=== PATIENT | male | born 1940 | race African-American/Black ===

== ENCOUNTER 2019-10-26 16:14 | Inpatient (IN) | payer MEDICARE ==
[~2019-10-26] VITALS: Ht 175.3 cm; Wt 70.8 kg
[2019-10-26 17:16] LABS: BARBITURATES NEG (NEG); BENZODIAZEPINES NEG (NEG); CANNABINOIDS NEG (NEG); COCAINE NEG (NEG); METHADONE NEG (NEG); OPIATES NEG (NEG); PHENCYCLIDINE NEG (NEG)
[2019-10-26 17:18] LABS: BACTERIA,URINE 0 /HPF (0-FEW); BILIRUBIN,URINE NEG (NEG); CLARITY,URINE CLEAR; COLOR,URINE COLORLESS; GLUCOSE,URINE NEG (NEG); NITRITE,URINE NEG (NEG); RBC,URINE 0 /HPF (0-2); SQUAMOUS EPITHELIAL CELL,UR OCC /LPF; UROBILINOGEN,URINE 0.2 mg/dL (0.2 mg/dL); WBC,URINE 0 /HPF (0-4)
[2019-10-26 17:20] LABS: AMPHETAMINE/METHAMPHETAMINE NEG (NEG)
[2019-10-26 17:24] LABS: BASO # 0.1 x10^3/uL (0.0-0.2); BASO % 1 % (0-3); EOS # 0.3 x10^3/uL (0.0-0.7); EOS % 5 % (0-3); HEMATOCRIT 40.9 % (39.0-53.0); HEMOGLOBIN 13.6 g/dL (13.0-17.5); LYMPH # 3.1 x10^3/uL (1.0-4.8); LYMPH % 48 % (24-48); MEAN CORPUSCULAR HEMOGLOBIN 28 pg (25-35); MEAN CORPUSCULAR HGB CONC 33 g/dL (31-37); MEAN CORPUSCULAR VOLUME 85 fL (79-100); MONO # 0.5 x10^3/uL (0.0-1.1); MONO % 8 % (0-9); NEUT # 2.5 x10^3uL (1.8-7.7); NEUT % 39 % (31-73); PLATELET COUNT 302 x10^3/uL (140-400); RED BLOOD COUNT 4.83 x10^6/uL (4.30-5.70); RED CELL DISTRIBUTION WIDTH 14.3 % (11.5-14.5); WHITE BLOOD COUNT 6.5 x10^3/uL (4.0-11.0)
[2019-10-26 17:31] LABS: CALCIUM 9.6 mg/dL (8.5-10.1); CREATININE 1.6 mg/dL (0.7-1.3); GFR 41.8; POTASSIUM 3.7 mmol/L (3.5-5.1)
[2019-10-26 17:37] LABS: ALBUMIN/GLOBULIN RATIO 0.9 (1.0-1.7); MAGNESIUM 2.1 mg/dL (1.8-2.4); TOTAL BILIRUBIN 0.4 mg/dL (0.2-1.0); TOTAL PROTEIN 8.5 g/dL (6.4-8.2)
[2019-10-26 17:39] LABS: ACETAMIN < 2.0 mcg/mL (10-30); ETHANOL < 10 mg/dL (0-10); SALIC 0.8 mg/dL (2.8-20.0)
--- NOTE | 2019-10-26 17:43 | PHYS DOC ---
Past History Past Medical History: Dementia, Diabetes, Hypertension, Other Additional Past Medical Histor: lung cancer with mets Past Surgical History: No Surgical History Alcohol Use: None Drug Use: None Adult General Chief Complaint Chief Complaint: MEDICAL CLEARANCE [facility] HPI Patient is a 79-year-old male who was sent here for medical clearance prior to being admitted to GERIPSYCH units at this hospital. Patient has history of dementia, diabetic, hypertension. He had been more combative agitated, Resists care, REFUSED TAKING A BATH, verbally aggressive towards detention staff. he denies suicidal ideation and homicidal ideation. he denies any chest pain, no abdominal pain, no nausea vomiting. All other ROS is negative unless otherwise noted in HPI Review of Systems Review of Systems See above Allergies Allergies Allergies Coded Allergies Type Severity Reaction Last Updated Verified No Known Drug Allergies 10/26/19 No Physical Exam Physical Exam See above Constitutional: Well developed, well nourished, no acute distress, non-toxic appearance. [] HENT: Normocephalic, atraumatic, bilateral external ears normal, oropharynx moist, no oral exudates, nose normal. [] Eyes: PERRLA, EOMI, conjunctiva normal, no discharge. [] Neck: Normal range of motion, no tenderness, supple, no stridor. [] Cardiovascular:Heart rate regular rhythm, no murmur [] Lungs & Thorax: Bilateral breath sounds clear to auscultation [] Abdomen: Bowel sounds normal, soft, no tenderness, no masses, no pulsatile masses. [] Skin: Warm, dry, no erythema, no rash. [] Back: No tenderness, no CVA tenderness. [] Extremities: No tenderness, no cyanosis, no clubbing, ROM intact, no edema. [] Neurologic: Alert and oriented X 3, normal motor function, normal sensory function, no focal deficits noted. [] Psychologic: Patient appeared irritated but follow command. Current Patient Data Vital Signs Vital Signs Date Time Temp Pulse Resp B/P (MAP) Pulse Ox O2 Delivery O2 Flow Rate FiO2 10/26/19 16:14 98.1 109 18 100 Room Air Lab Results Laboratory Tests Test 10/26/19 16:15 10/26/19 17:05 Urine Collection Type Void Urine Color Colorless Urine Clarity Clear Urine pH 7.0 Urine Specific [place] 1.010 Urine Protein Neg (NEG-TRACE) Urine Glucose (UA) Neg mg/dL (NEG) Urine Ketones (Stick) Neg mg/dL (NEG) Urine Blood Neg (NEG) Urine Nitrite Neg (NEG) Urine Bilirubin Neg (NEG) Urine Urobilinogen Dipstick 0.2 mg/dL (0.2 mg/dL) Urine Leukocyte Esterase Neg (NEG) Urine RBC 0 /HPF (0-2) Urine WBC 0 /HPF (0-4) Urine Squamous Epithelial Cells Occ /LPF Urine Bacteria 0 /HPF (0-FEW) Urine Opiates Screen Neg (NEG) Urine Methadone Screen Neg (NEG) Urine Barbiturates Neg (NEG) Urine Phencyclidine Screen Neg (NEG) Urine Amphetamine/Methamphetamine Neg (NEG) Urine Benzodiazepines Screen Neg (NEG) Urine Cocaine Screen Neg (NEG) Urine Cannabinoids Screen Neg (NEG) Urine Ethyl Alcohol Neg (NEG) White Blood Count 6.5 x10^3/uL (4.0-11.0) Red Blood Count 4.83 x10^6/uL (4.30-5.70) Hemoglobin 13.6 g/dL (13.0-17.5) Hematocrit 40.9 % (39.0-53.0) Mean Corpuscular Volume 85 fL (79-100) Mean Corpuscular Hemoglobin 28 pg (25-35) Mean Corpuscular Hemoglobin Concent 33 g/dL (31-37) Red Cell Distribution Width 14.3 % (11.5-14.5) Platelet Count 302 x10^3/uL (140-400) Neutrophils (%) (Auto) 39 % (31-73) Lymphocytes (%) (Auto) 48 % (24-48) Monocytes (%) (Auto) 8 % (0-9) Eosinophils (%) (Auto) 5 % (0-3) H Basophils (%) (Auto) 1 % (0-3) Neutrophils # (Auto) 2.5 x10^3uL (1.8-7.7) Lymphocytes # (Auto) 3.1 x10^3/uL (1.0-4.8) Monocytes # (Auto) 0.5 x10^3/uL (0.0-1.1) Eosinophils # (Auto) 0.3 x10^3/uL (0.0-0.7) Basophils # (Auto) 0.1 x10^3/uL (0.0-0.2) Sodium Level 144 mmol/L (136-145) Potassium Level 3.7 mmol/L (3.5-5.1) Chloride Level 106 mmol/L (98-107) Carbon Dioxide Level 28 mmol/L (21-32) Anion Gap 10 (6-14) Blood Urea Nitrogen 17 mg/dL (8-26) Creatinine 1.6 mg/dL (0.7-1.3) H Estimated GFR (Cockcroft-Gault) 41.8 BUN/Creatinine Ratio 11 (6-20) Glucose Level 150 mg/dL (70-99) H Calcium Level 9.6 mg/dL (8.5-10.1) Magnesium Level 2.1 mg/dL (1.8-2.4) Total Bilirubin 0.4 mg/dL (0.2-1.0) Aspartate Amino Transferase (AST) 12 U/L (15-37) L Alanine Aminotransferase (ALT) 22 U/L (16-63) Alkaline Phosphatase 97 U/L (46-116) Total Protein 8.5 g/dL (6.4-8.2) H Albumin 4.0 g/dL (3.4-5.0) Albumin/Globulin Ratio 0.9 (1.0-1.7) L Salicylates Level 0.8 mg/dL (2.8-20.0) L Salicylate Last Dose Date Unk Salicylate Last Dose Time Unk Acetaminophen Level < 2.0 mcg/mL (10-30) L Acetaminophen Last Dose Date Unk Acetaminophen Last Dose Time Unk Ethyl Alcohol Level < 10 mg/dL (0-10) EKG EKG [] Radiology/Procedures Radiology/Procedures [] Course & Med Decision Making Course & Med Decision Making Pertinent Labs and Imaging studies reviewed. (See chart for details) [] Dragon Disclaimer Dragon Disclaimer This electronic medical record was generated, in whole or in part, using a voice recognition dictation system. Departure Departure: Impression: Primary Impression: Dementia Additional Impression: Agitation Disposition: ADMITTED INPATIENT Admitting Physician: Other (DR. POWELL) Condition: STABLE Referrals: ASHER CHAPMAN (PCP) Problem Qualifiers REJI LOZADA DO Oct 26, 2019 17:43
--- NOTE | 2019-10-26 18:00 | EKG ---
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
[2019-10-26 19:45] VITALS: BP 125/71
--- NOTE | 2019-10-26 21:03 | PDOC ---
Exam Note: Rafa Note: Please also refer to the separate dictated note~for this date of service dictated separately. Discussed the patient with Nursing staff reviewed the chart.~Reviewed interim history and current functioning. Reviewed vital signs,~Labs/ Radiology~and current medications noted below. Continue current treatment with the changes noted in the dictated addendum note Assessment: Vital Signs/I&O: Vital Signs Date Time Temp Pulse Resp B/P (MAP) Pulse Ox O2 Delivery O2 Flow Rate FiO2 10/26/19 18:36 108 20 146/60 (88) 99 Room Air 10/26/19 16:14 98.1 Labs: Laboratory Tests Test 10/26/19 16:15 10/26/19 17:05 Urine Collection Type Void Urine Color Colorless Urine Clarity Clear Urine pH 7.0 Urine Specific [place] 1.010 Urine Protein Neg (NEG-TRACE) Urine Glucose (UA) Neg mg/dL (NEG) Urine Ketones (Stick) Neg mg/dL (NEG) Urine Blood Neg (NEG) Urine Nitrite Neg (NEG) Urine Bilirubin Neg (NEG) Urine Urobilinogen Dipstick 0.2 mg/dL (0.2 mg/dL) Urine Leukocyte Esterase Neg (NEG) Urine RBC 0 /HPF (0-2) Urine WBC 0 /HPF (0-4) Urine Squamous Epithelial Cells Occ /LPF Urine Bacteria 0 /HPF (0-FEW) Urine Opiates Screen Neg (NEG) Urine Methadone Screen Neg (NEG) Urine Barbiturates Neg (NEG) Urine Phencyclidine Screen Neg (NEG) Urine Amphetamine/Methamphetamine Neg (NEG) Urine Benzodiazepines Screen Neg (NEG) Urine Cocaine Screen Neg (NEG) Urine Cannabinoids Screen Neg (NEG) Urine Ethyl Alcohol Neg (NEG) White Blood Count 6.5 x10^3/uL (4.0-11.0) Red Blood Count 4.83 x10^6/uL (4.30-5.70) Hemoglobin 13.6 g/dL (13.0-17.5) Hematocrit 40.9 % (39.0-53.0) Mean Corpuscular Volume 85 fL (79-100) Mean Corpuscular Hemoglobin 28 pg (25-35) Mean Corpuscular Hemoglobin Concent 33 g/dL (31-37) Red Cell Distribution Width 14.3 % (11.5-14.5) Platelet Count 302 x10^3/uL (140-400) Neutrophils (%) (Auto) 39 % (31-73) Lymphocytes (%) (Auto) 48 % (24-48) Monocytes (%) (Auto) 8 % (0-9) Eosinophils (%) (Auto) 5 % (0-3) H Basophils (%) (Auto) 1 % (0-3) Neutrophils # (Auto) 2.5 x10^3uL (1.8-7.7) Lymphocytes # (Auto) 3.1 x10^3/uL (1.0-4.8) Monocytes # (Auto) 0.5 x10^3/uL (0.0-1.1) Eosinophils # (Auto) 0.3 x10^3/uL (0.0-0.7) Basophils # (Auto) 0.1 x10^3/uL (0.0-0.2) Sodium Level 144 mmol/L (136-145) Potassium Level 3.7 mmol/L (3.5-5.1) Chloride Level 106 mmol/L (98-107) Carbon Dioxide Level 28 mmol/L (21-32) Anion Gap 10 (6-14) Blood Urea Nitrogen 17 mg/dL (8-26) Creatinine 1.6 mg/dL (0.7-1.3) H Estimated GFR (Cockcroft-Gault) 41.8 BUN/Creatinine Ratio 11 (6-20) Glucose Level 150 mg/dL (70-99) H Calcium Level 9.6 mg/dL (8.5-10.1) Magnesium Level 2.1 mg/dL (1.8-2.4) Total Bilirubin 0.4 mg/dL (0.2-1.0) Aspartate Amino Transferase (AST) 12 U/L (15-37) L Alanine Aminotransferase (ALT) 22 U/L (16-63) Alkaline Phosphatase 97 U/L (46-116) Total Protein 8.5 g/dL (6.4-8.2) H Albumin 4.0 g/dL (3.4-5.0) Albumin/Globulin Ratio 0.9 (1.0-1.7) L Salicylates Level 0.8 mg/dL (2.8-20.0) L Salicylate Last Dose Date Unk Salicylate Last Dose Time Unk Acetaminophen Level < 2.0 mcg/mL (10-30) L Acetaminophen Last Dose Date Unk Acetaminophen Last Dose Time Unk Ethyl Alcohol Level < 10 mg/dL (0-10) Current Medications: I have reviewed the current psychotropics carefully including drug interactions. Risk benefit ratio favors no change other than as noted in my dictated progress note. ANAYELI POWELL MD Oct 26, 2019 21:03
[2019-10-26] MEDS ORDERED: MAGNESIUM HYDROXIDE 2,400 MG/30 ML ORAL.SUSP. PO PRN ×2 (22:30)
[2019-10-26] MEDS ORDERED: METHYL SALICYLATE/MENTHOL TOPICAL OINTMENT 57GM TUBE. TP PRN ×2 (22:30)
[2019-10-26] MEDS ORDERED: ACETAMINOPHEN 325 MG TABLET PO PRN ×2 (22:30)
[2019-10-26] MEDS ORDERED: MAG HYDROX/AL HYDROX/SIMETH 30 ML ORAL.SUSP PO PRN ×2 (22:30)
[2019-10-26] MEDS ORDERED: GUAI237L83 PO (23:08)
[2019-10-26] MEDS ORDERED: ACET650S11 RC (23:08)
[2019-10-26] MEDS ORDERED: IPRA3AMP29 NEB (23:08)
[2019-10-26] MEDS ORDERED: LORA-254 PO (23:08)
[2019-10-26] MEDS ORDERED: BISA10SU55 RC (23:08)
[2019-10-26] MEDS ORDERED: HYOS0.1265 SL (23:08)
[2019-10-26] MEDS ORDERED: OXYC5TAB4 PO (23:08)
[2019-10-26] MEDS ORDERED: ONDA8TAB9 PO (23:08)
[2019-10-26] MEDS ORDERED: MORP20SY PO (23:08)
[2019-10-26] MEDS ORDERED: LORazepam 0.5 MG TABLET PO PRN (23:15)
[2019-10-26] MEDS ORDERED: ONDANSETRON ODT 4 MG TAB.RAPDIS PO PRN (23:15)
[2019-10-26] MEDS ORDERED: guaiFENesin DM 200MG/20MG 10 ML SYRUP PO PRN (23:15)
[2019-10-26] MEDS ORDERED: oxyCODONE IR 5 MG TABLET PO PRN (23:15)
[2019-10-26] MEDS ORDERED: HYOSCYAMINE 0.125 MG TAB.RAPDIS PO PRN (23:15)
[2019-10-26] MEDS ORDERED: IPRATRPIUM/ALBUTEROL 0.5/2.5MG 3 ML NEBU. NEB PRN (23:15)
[2019-10-26] MEDS ORDERED: ACETAMINOPHEN 650 MG SUPP.RECT. RC PRN (23:15)
[2019-10-26] MEDS ORDERED: BISACODYL 10 MG SUPP.RECT RC PRN (23:15)
[2019-10-27] MEDS ORDERED: MORPHINE SULFATE 20 MG/ML CONC SOLUTION. SL PRN
[2019-10-27] MEDS ORDERED: MORPHINE SULFATE 20 MG/ML CONC SOLUTION. SL SCH
[2019-10-27 05:53] VITALS: BP 115/73
[2019-10-27 15:44] VITALS: BP 114/70
[2019-10-27] MEDS ORDERED: OLANZapine 2.5 MG TABLET PO PRN (17:00)
[2019-10-27] MEDS: CHOLECALCIFEROL (VITAMIN D3) 50,000 UNIT CAPSULE PO SCH (18:30)
--- NOTE | 2019-10-27 21:04 | PDOC ---
Exam Note: Rafa Note: Please also refer to the separate dictated note~for this date of service dictated separately.~Patient seen individually. Discussed the patient with Nursing staff reviewed the chart.~Reviewed interim history and current functioning. Reviewed vital signs,~Labs/ Radiology~and current medications noted below. Continue current treatment with the changes noted in the dictated addendum note Assessment: Vital Signs/I&O: Vital Signs Date Time Temp Pulse Resp B/P (MAP) Pulse Ox O2 Delivery O2 Flow Rate FiO2 10/27/19 15:44 98.1 70 18 114/70 (85) 100 10/26/19 18:36 Room Air Current Medications: I have reviewed the current psychotropics carefully including drug interactions. Risk benefit ratio favors no change other than as noted in my dictated progress note. 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
[2019-10-27 21:06] LABS: THYROXINE 8.1 ug/dL (4.5-12.0)
[2019-10-28 00:06] LABS: HEMOGLOBIN A1C 6.5 % (4.8-5.6)
--- NOTE | 2019-10-28 03:24 | CONS ---
DATE OF CONSULTATION: Consult for medical management. HISTORY OF PRESENT ILLNESS: The patient is an 79-year-old -[place]ian male patient on hospice who was admitted on account of being combative; agitated; argumentative; resists care in bathing; verbally aggressive; cursing; delusional; thinks he can drive and manage independently on this in a background of major neurocognitive disorder; vascular Alzheimer with delusion; depression; behavioral disturbances; anxiety disorder, unspecified and impulse control disorder. Medically, the patient is known to have hypertension, type 2 diabetes, gastroesophageal reflux disease, chronic kidney disease and lung cancer with metastases. PAST PSYCHIATRIC HISTORY: Significant for dementia. PAST SURGICAL HISTORY: Significant for bilateral cataract extraction. ALLERGIES: He has no known drug allergies. MEDICATIONS: He is currently on Levsin 0.125 mg sublingual every 4 hours; ipratropium bromide; albuterol sulfate for DuoNeb in 3 mL by nebulizer every 4 hours; morphine sulfate 20 mg per 1 mL, take 0.5 mL every 2 hours as needed; oxycodone 10 mg every 6 hours; Tylenol 650 mg every 4 hours; lorazepam 0.5 mg every 4 hours; Robitussin-DM 10 mL every 4 hours; bisacodyl 10 mg suppositories rectally as needed; ondansetron 8 mg every 6 hours. FAMILY HISTORY: Unobtainable. SOCIAL HISTORY: He claims that he lives with his family. 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 PHYSICAL EXAMINATION: GENERAL: When I examined him, he looked well and was clearly in no apparent respiratory distress. No pallor, jaundice, cyanosis or thyromegaly. No jugular venous distention. No limb edema. VITAL SIGNS: His heart rate was 70, blood pressure was 114/70, temperature 98.1, respiratory rate was 18, and oxygen saturation 100%. HEAD, EYES, EARS, NOSE AND THROAT: Showed normocephalic, atraumatic. NECK: Supple. HEART: Showed normal first and second heart sounds. No gallop or murmur. CHEST: Clear to auscultation. No crepitation or rhonchi. ABDOMEN: Distended, soft, nontender. NEUROLOGIC: He is awake, alert, responding appropriately. All cranial nerves intact. He moves extremities without difficulty. He ambulates without assistance or assistive devices. LABORATORY DATA: Showed a serum sodium 144, potassium 3.7, chloride 106, bicarbonate 28, anion gap of 10, BUN 17, creatinine 1.6, estimated GFR was 42 mL per minute. Her glucose 150, calcium was 9.6, magnesium 2.1. Serum iron 68, TIBC was 234 and iron saturation was 29. Her total bilirubin, AST, ALT, alkaline phosphatase were normal. Total protein 8.5, albumin was 4. Her vitamin B12 was 584 pg and vitamin D was 13.9. Her white cell count was 6500, hemoglobin 14, hematocrit 41, MCV 85 and platelet count 302,000 with normal manual differential. Urinalysis was essentially unremarkable and toxic screen was essentially negative. His treponema pallidum antibodies negative. IMPRESSION AND PLAN: In summary, this is an 79-year-old -[place] male patient who was actually on hospice and who was admitted on account of being combative, agitated, argumentative, resists care in bathing, verbally aggressive, cursing, delusional, thinks he can drive and manage independently on this in a background of major neurocognitive disorder. Medically, he is known to have type 2 diabetes, hypertension, chronic kidney disease and lung cancer with metastases. All in all, he seemed to be stable. All his vital signs are normal. His lab works are all within acceptable range except his vitamin D is low at 13.9. I will start him on cholecalciferol. I would also follow all his lab works that are still pending at the time of this dictation. Thank you, Dr. Castle for allowing me to participate in the care of the patient. ASHER INFANTE MD DR: TAINA/heidy JOB#: [id number] / [id number]
[2019-10-28 05:19] VITALS: BP 142/81
[2019-10-28 16:03] VITALS: BP 147/83
--- NOTE | 2019-10-28 21:41 | PDOC ---
Exam Note: Rafa Note: Please also refer to the separate dictated note~for this date of service dictated separately.~Patient seen individually. Discussed the patient with Nursing staff reviewed the chart.~Reviewed interim history and current functioning. Reviewed vital signs,~Labs/ Radiology~and current medications noted below. Continue current treatment with the changes noted in the dictated addendum note Assessment: Vital Signs/I&O: Vital Signs Date Time Temp Pulse Resp B/P (MAP) Pulse Ox O2 Delivery O2 Flow Rate FiO2 10/28/19 16:03 97.2 99 20 147/83 (104) 99 10/26/19 18:36 Room Air I & O 10/27/19 10/27/19 10/28/19 15:00 23:00 07:00 Intake Total 720 ml 600 ml Balance 720 ml 600 ml Current Medications: I have reviewed the current psychotropics carefully including drug interactions. Risk benefit ratio favors no change other than as noted in my dictated progress note. 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
--- NOTE | 2019-10-29 01:31 | HP ---
ADMIT DATE: 10/26/2019 PSYCHIATRIC ADMISSION HISTORY/EVALUATION. This is a late entry for 10/27/2019. I met with the patient in the evening of 10/27/2019 for this evaluation. IDENTIFYING DATA: The patient is an 79-year-old -[place] male referred to us by [facility] and by his primary care physician, Dr. Patrick on account of being combative, agitated, argumentative, resistive to cares and bathing. He was verbally aggressive, cursing, delusional. He believed he could drive and manage independently. Behaviors were unmanageable, dangerous, out of control, referred for inpatient psychiatric stabilization. Reportedly, the patient has a lung cancer with metastasis and was on hospice care for that. He has appeared somewhat more depressed. CHIEF COMPLAINT: "I have been here 2 weeks. No I don't know where I came from." HISTORY OF PRESENT ILLNESS: The patient has a history of dementia, Alzheimer's vascular type. He has been living in the home with his grandson who has been trying to manage the patient at home, but gradually he has been getting more psychotic, agitated, somewhat depressed, anxious, combative as noted above. Various interventions by his primary care physician outpatient have failed resulting in this referral. No clear history of bipolar disorder. PAST PSYCHIATRIC HISTORY: As above. MEDICAL HISTORY: Positive for lung cancer with metastasis, type 2 diabetes mellitus, hypertension, GERD, cataracts, chronic kidney disease, Accu-Cheks daily. CODE STATUS: DNR. DRUG ALLERGIES: Negative. DIET: Regular. Refuses his medications, ambulates independently with walker, often refuses to use the walker. CURRENT PSYCHOTROPICS: Ativan 0.5 mg q. 4 hours p.r.n. anxiety, Zyprexa 2.5 mg q. 2 hours p.r.n. psychosis. FAMILY HISTORY: Noncontributory. SOCIAL HISTORY: No physical, sexual or elder abuse history is noted. Not known to be a perpetrator. Rest as above. REACTION TO HOSPITALIZATION: The patient oblivious of this. ASSETS: Supportive family. MENTAL STATUS EXAMINATION: The patient was seen individually in the evening of 10/27/2019. He is oriented to himself, ambulating up and down the hallway and I had to follow him around to interview him to the extent he could cooperate. Insight, judgment, recent and remote memory, attention, concentration, fund of knowledge poor, consistent with his diagnosis. IMPRESSION: Major neurocognitive disorder, Alzheimer, vascular with delusion, depression, behavioral disturbance; anxiety disorder, unspecified; impulse control disorder, unspecified. Rest as above. PLAN: Admit to Geropsychiatry Unit at [facility]. I will see the patient daily individually from a psychiatric standpoint. Medical followup per Dr. Blanco. Continue the patient on his current psychotropics. Observe baseline, consider adding an SSRI agent and we will monitor his sleep. May use Remeron to help with any insomnia and anxiety as well. Estimated length of stay 10-12 days. DISPOSITION: Plans back home with his grandson or alternative placements depending on his progress. MAN Julius POWELL MD DR: NATACHA/heidy JOB#: [id number] / [id number]
[2019-10-29 06:44] VITALS: BP 133/75
[2019-10-29 07:42] LABS: INFLUENZA A PATIENT NEGATIVE (NEGATIVE); INFLUENZA B PATIENT NEGATIVE (NEGATIVE)
[2019-10-29 10:31] LABS: BASO % 1 % (0-3); EOS # 0.3 x10^3/uL (0.0-0.7); EOS % 4 % (0-3); HEMATOCRIT 43.8 % (39.0-53.0); HEMOGLOBIN 14.3 g/dL (13.0-17.5); LYMPH # 3.8 x10^3/uL (1.0-4.8); LYMPH % 49 % (24-48); MEAN CORPUSCULAR HEMOGLOBIN 28 pg (25-35); MEAN CORPUSCULAR HGB CONC 33 g/dL (31-37); MEAN CORPUSCULAR VOLUME 85 fL (79-100); MONO # 0.5 x10^3/uL (0.0-1.1); MONO % 7 % (0-9); NEUT # 3.1 x10^3uL (1.8-7.7); NEUT % 40 % (31-73); PLATELET COUNT 315 x10^3/uL (140-400); RED BLOOD COUNT 5.14 x10^6/uL (4.30-5.70); RED CELL DISTRIBUTION WIDTH 14.3 % (11.5-14.5); WHITE BLOOD COUNT 7.7 x10^3/uL (4.0-11.0)
[2019-10-29 11:04] LABS: ALBUMIN 3.6 g/dL (3.4-5.0); ALBUMIN/GLOBULIN RATIO 0.9 (1.0-1.7); CALCIUM 9.1 mg/dL (8.5-10.1); CREATININE 1.6 mg/dL (0.7-1.3); GFR 50.6; POTASSIUM 3.9 mmol/L (3.5-5.1); TOTAL BILIRUBIN 0.5 mg/dL (0.2-1.0); TOTAL PROTEIN 7.8 g/dL (6.4-8.2)
[2019-10-29] MEDS: SERTRALINE 25 MG TABLET. PO SCH (12:20)
[2019-10-29 15:47] VITALS: BP 163/80
--- NOTE | 2019-10-29 20:51 | PDOC ---
Exam Note: Rafa Note: Please also refer to the separate dictated note~for this date of service dictated separately.~Patient seen individually. Discussed the patient with Nursing staff reviewed the chart.~Reviewed interim history and current functioning. Reviewed vital signs,~Labs/ Radiology~and current medications noted below. Continue current treatment with the changes noted in the dictated addendum note Assessment: Vital Signs/I&O: Vital Signs Date Time Temp Pulse Resp B/P (MAP) Pulse Ox O2 Delivery O2 Flow Rate FiO2 10/29/19 15:47 97.6 104 16 163/80 (107) 95 10/26/19 18:36 Room Air I & O 10/28/19 10/28/19 10/29/19 15:00 23:00 07:00 Intake Total 960 ml 480 ml Balance 960 ml 480 ml Labs: Laboratory Tests Test 10/29/19 07:10 10/29/19 09:50 Influenza Type A (Rapid) Negative (NEGATIVE) Influenza Type B (Rapid) Negative (NEGATIVE) White Blood Count 7.7 x10^3/uL (4.0-11.0) Red Blood Count 5.14 x10^6/uL (4.30-5.70) Hemoglobin 14.3 g/dL (13.0-17.5) Hematocrit 43.8 % (39.0-53.0) Mean Corpuscular Volume 85 fL (79-100) Mean Corpuscular Hemoglobin 28 pg (25-35) Mean Corpuscular Hemoglobin Concent 33 g/dL (31-37) Red Cell Distribution Width 14.3 % (11.5-14.5) Platelet Count 315 x10^3/uL (140-400) Neutrophils (%) (Auto) 40 % (31-73) Lymphocytes (%) (Auto) 49 % (24-48) H Monocytes (%) (Auto) 7 % (0-9) Eosinophils (%) (Auto) 4 % (0-3) H Basophils (%) (Auto) 1 % (0-3) Neutrophils # (Auto) 3.1 x10^3uL (1.8-7.7) Lymphocytes # (Auto) 3.8 x10^3/uL (1.0-4.8) Monocytes # (Auto) 0.5 x10^3/uL (0.0-1.1) Eosinophils # (Auto) 0.3 x10^3/uL (0.0-0.7) Basophils # (Auto) 0.0 x10^3/uL (0.0-0.2) Sodium Level 142 mmol/L (136-145) Potassium Level 3.9 mmol/L (3.5-5.1) Chloride Level 107 mmol/L (98-107) Carbon Dioxide Level 23 mmol/L (21-32) Anion Gap 12 (6-14) Blood Urea Nitrogen 18 mg/dL (8-26) Creatinine 1.6 mg/dL (0.7-1.3) H Estimated GFR (Cockcroft-Gault) 50.6 BUN/Creatinine Ratio 11 (6-20) Glucose Level 128 mg/dL (70-99) H Calcium Level 9.1 mg/dL (8.5-10.1) Total Bilirubin 0.5 mg/dL (0.2-1.0) Aspartate Amino Transferase (AST) 14 U/L (15-37) L Alanine Aminotransferase (ALT) 14 U/L (16-63) L Alkaline Phosphatase 94 U/L (46-116) Total Protein 7.8 g/dL (6.4-8.2) Albumin 3.6 g/dL (3.4-5.0) Albumin/Globulin Ratio 0.9 (1.0-1.7) L Current Medications: Meds: Current Medications Medications (Trade) Dose Ordered Sig/Ирина Route PRN Reason Start Time Stop Time Status Last Admin Dose Admin Sertraline HCl (Zoloft) 25 mg DAILY PO 10/29/19 09:00 10/29/19 12:20 I have reviewed the current psychotropics carefully including drug interactions. Risk benefit ratio favors no change other than as noted in my dictated progress note. 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
[2019-10-29] MEDS ORDERED: MIRTAZAPINE 7.5 MG TABLET. PO SCH (21:00)
--- NOTE | 2019-10-29 21:23 | PN ---
DATE: 10/28/2019 PSYCHIATRIC PROGRESS NOTE This late entry 10/28/2019 covers the elements not covered in my initial note. SUBJECTIVE: I met with the patient in the evening of 10/28/2019. The patient slept 5-1/2 hours previous night. He remains somewhat withdrawn, wandering the unit, met with him in his room. REVIEW OF SYSTEMS: No CV, , pulmonary, eye, ENT system symptoms on review. Reliability is poor. MENTAL STATUS EXAM: Oriented to himself. Insight, judgment, recent and remote memory, attention, concentration, fund of knowledge poor, consistent with his diagnosis. IMPRESSION: Major neurocognitive disorder, Alzheimer, vascular with delusion, depression, behavioral disturbance; anxiety disorder, unspecified; impulse control disorder, unspecified. PLAN: Start Zoloft 25 mg a day, Remeron 7.5 mg p.o. at bedtime. Continue Zyprexa p.r.n., Ativan p.r.n. Rest unchanged for now. ANAYELI POWELL MD DR: NATACHA/heidy JOB#: [id number] / [id number]
--- NOTE | 2019-10-30 04:11 | EKG ---
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
[2019-10-30 05:55] VITALS: BP 131/81
[2019-10-30] MEDS: SERTRALINE 25 MG TABLET. PO SCH (08:05)
[2019-10-30 15:50] VITALS: BP 141/91
[2019-10-30] MEDS: QUEtiapine 25 MG TABLET. PO SCH (17:00)
[2019-10-30] MEDS: METOPROLOL TART IMMED RELEASE 25 MG TABLET PO SCH (20:49)
--- NOTE | 2019-10-30 21:11 | PDOC ---
Exam Note: Rafa Note: Please also refer to the separate dictated note~for this date of service dictated separately.~Patient seen individually. Discussed the patient with Nursing staff reviewed the chart.~Reviewed interim history and current functioning. Reviewed vital signs,~Labs/ Radiology~and current medications noted below. Continue current treatment with the changes noted in the dictated addendum note Assessment: Vital Signs/I&O: Vital Signs Date Time Temp Pulse Resp B/P (MAP) Pulse Ox O2 Delivery O2 Flow Rate FiO2 10/30/19 20:49 93 141/91 10/30/19 15:50 98.0 19 96 Room Air I & O 10/29/19 10/29/19 10/30/19 15:00 23:00 07:00 Intake Total 240 ml 240 ml Balance 240 ml 240 ml Current Medications: Meds: Current Medications Medications (Trade) Dose Ordered Sig/Ирина Route PRN Reason Start Time Stop Time Status Last Admin Dose Admin Metoprolol Tartrate (Lopressor) 12.5 mg BID PO 10/30/19 21:00 10/30/19 20:49 I have reviewed the current psychotropics carefully including drug interactions. Risk benefit ratio favors no change other than as noted in my dictated progress note. Diagnosis: Problems: (1) Anxiety disorder (2) Dementia, vascular, with delusions (3) Dementia, vascular, with depression (4) Dementia in Alzheimer's disease with delusions (5) Dementia in Alzheimer's disease with depression (6) Impulse control disorder ANAYELI POWELL MD Oct 30, 2019 21:11
--- NOTE | 2019-10-31 01:14 | PN ---
DATE: 10/29/2019 PSYCHIATRIC PROGRESS NOTE This late entry 10/29/2019 covers the elements not covered in my initial note. SUBJECTIVE: I met with the patient in the evening of 10/29/2019. The patient slept 6-1/4 hours previous night. He is somewhat resistive to his medications, was running low-grade fever with sinus tachycardia, defer to Dr. Blanco. He has been anxious, restless, constantly walking up and down the hallway, hypomanic per nursing report. REVIEW OF SYSTEMS: No CV, , pulmonary, eye, ENT system symptoms on review. Reliability poor. Discussed with KERLINE James. MENTAL STATUS EXAM: Oriented to himself. Insight, judgment, recent and remote memory, attention, concentration, fund of knowledge poor, consistent with his diagnosis. IMPRESSION: Major neurocognitive disorder, Alzheimer, vascular with delusion, depression, behavioral disturbance; anxiety disorder, unspecified; impulse control disorder, unspecified. PLAN: Continue Zoloft 25 mg a day. Change Remeron to Seroquel 25 mg at dinnertime to help with compliance. Rest unchanged for now. I do not feel treatment on cholinesterase inhibitors or Namenda would be of much help and for now, we will defer it. ANAYELI POWELL MD DR: NATACHA/heidy JOB#: [id number] / [id number]
[2019-10-31 05:44] VITALS: BP 108/76
[2019-10-31] MEDS: SERTRALINE 25 MG TABLET. PO SCH (09:42)
[2019-10-31] MEDS: METOPROLOL TART IMMED RELEASE 25 MG TABLET PO SCH ×2 (09:43→20:01)
[2019-10-31 15:45] VITALS: BP 92/68
[2019-10-31] MEDS: QUEtiapine 25 MG TABLET. PO SCH (17:54)
[2019-10-31 20:48] VITALS: BP 134/84
--- NOTE | 2019-10-31 21:15 | PDOC ---
Exam Note: Rafa Note: Please also refer to the separate dictated note~for this date of service dictated separately.~Patient seen individually. Discussed the patient with Nursing staff reviewed the chart.~Reviewed interim history and current functioning. Reviewed vital signs,~Labs/ Radiology~and current medications noted below. Continue current treatment with the changes noted in the dictated addendum note Assessment: Vital Signs/I&O: Vital Signs Date Time Temp Pulse Resp B/P (MAP) Pulse Ox O2 Delivery O2 Flow Rate FiO2 10/31/19 20:48 96 134/84 (101) 10/31/19 15:45 98.0 16 96 10/30/19 15:50 Room Air I & O 10/30/19 10/30/19 10/31/19 15:00 23:00 07:00 Intake Total 480 ml 100 ml Balance 480 ml 100 ml Current Medications: I have reviewed the current psychotropics carefully including drug interactions. Risk benefit ratio favors no change other than as noted in my dictated progress note. Diagnosis: Problems: (1) Anxiety disorder (2) Dementia, vascular, with delusions (3) Dementia, vascular, with depression (4) Dementia in Alzheimer's disease with delusions (5) Dementia in Alzheimer's disease with depression (6) Impulse control disorder ANAYELI POWELL MD Oct 31, 2019 21:15
--- NOTE | 2019-10-31 22:15 | PN ---
DATE: 10/30/2019 PSYCHIATRIC PROGRESS NOTE This late entry of 10/30/2019 covers the elements not covered in my initial note. SUBJECTIVE: I met with the patient in the evening of 10/30/2019. Per KERLINE Gonzales, the patient slept 7-1/2 hours previous night. Previous evening, he was withdrawn, defecated on himself, quite oblivious, confused. He continues to have tachycardia, heart rate 123. EKG negative, we will defer to Dr. Blanco. REVIEW OF SYSTEMS: No CV, , pulmonary, eye, ENT system symptoms on review. Reliability poor. MENTAL STATUS EXAM: Oriented to himself. Insight, judgment, attention, concentration, fund of knowledge poor, consistent with his diagnosis mentioned in my initial note. PLAN: No change from initial note. MAN Julius POWELL MD DR: NATACHA/heidy JOB#: [id number] / [id number]
[2019-11-01 05:48] VITALS: BP 121/74
[2019-11-01] MEDS: METOPROLOL TART IMMED RELEASE 25 MG TABLET PO SCH ×2 (09:48→20:28)
[2019-11-01] MEDS: SERTRALINE 50 MG TABLET. PO SCH (09:48)
[2019-11-01 15:53] VITALS: BP 113/68
[2019-11-01] MEDS: QUEtiapine 25 MG TABLET. PO SCH (17:43)
--- NOTE | 2019-11-01 21:45 | PN ---
DATE: 10/31/2019 PSYCHIATRIC PROGRESS NOTE This late entry 10/31/2019 covers elements not covered in my initial note. SUBJECTIVE: I met with the patient evening of 10/31/2019. Per KERLINE Lin, the patient slept 6-3/4 hours previous night. He remains withdrawn, spends much time in bed, tired, but not aggressive. REVIEW OF SYSTEMS: No CV, , pulmonary, eye, ENT system symptoms on review. Reliability poor. MENTAL STATUS EXAM: Oriented to himself. Insight, judgment, recent and remote memory, attention, concentration, fund of knowledge poor, consistent with his diagnosis mentioned in my initial note. PLAN: No change from initial note, but we will increase her Zoloft to 50 mg a day. Maintain Seroquel along with p.r.n. and Zyprexa for now. MAN Julius POWELL MD DR: NATACHA/heidy JOB#: [id number] / [id number]
--- NOTE | 2019-11-01 22:03 | PDOC ---
Exam Note: Rafa Note: Please also refer to the separate dictated note~for this date of service dictated separately.~Patient seen individually. Discussed the patient with Nursing staff reviewed the chart.~Reviewed interim history and current functioning. Reviewed vital signs,~Labs/ Radiology~and current medications noted below. Continue current treatment with the changes noted in the dictated addendum note Assessment: Vital Signs/I&O: Vital Signs Date Time Temp Pulse Resp B/P (MAP) Pulse Ox O2 Delivery O2 Flow Rate FiO2 11/01/19 20:28 95 123/84 11/01/19 15:53 98.2 20 96 Room Air I & O 10/31/19 10/31/19 11/01/19 15:00 23:00 07:00 Intake Total 600 ml 80 ml Balance 600 ml 80 ml Current Medications: Meds: Current Medications Medications (Trade) Dose Ordered Sig/Ирина Route PRN Reason Start Time Stop Time Status Last Admin Dose Admin Sertraline HCl (Zoloft) 50 mg DAILY PO 11/01/19 09:00 11/01/19 09:48 I have reviewed the current psychotropics carefully including drug interactions. Risk benefit ratio favors no change other than as noted in my dictated progress note. Diagnosis: Problems: (1) Anxiety disorder (2) Dementia, vascular, with delusions (3) Dementia, vascular, with depression (4) Dementia in Alzheimer's disease with delusions (5) Dementia in Alzheimer's disease with depression (6) Impulse control disorder ANAYELI POWELL MD Nov 01, 2019 22:03
[2019-11-02 06:28] VITALS: BP 104/59
[2019-11-02] MEDS: METOPROLOL TART IMMED RELEASE 25 MG TABLET PO SCH ×2 (09:50→21:00)
[2019-11-02] MEDS: SERTRALINE 50 MG TABLET. PO SCH (09:50)
[2019-11-02 16:05] VITALS: BP 117/68
[2019-11-02] MEDS: QUEtiapine 25 MG TABLET. PO SCH (17:14)
--- NOTE | 2019-11-02 20:56 | PDOC ---
Exam Note: Rafa Note: Please also refer to the separate dictated note~for this date of service dictated separately.~Patient seen individually. Discussed the patient with Nursing staff reviewed the chart.~Reviewed interim history and current functioning. Reviewed vital signs,~Labs/ Radiology~and current medications noted below. Continue current treatment with the changes noted in the dictated addendum note Assessment: Vital Signs/I&O: Vital Signs Date Time Temp Pulse Resp B/P (MAP) Pulse Ox O2 Delivery O2 Flow Rate FiO2 11/02/19 16:05 98.0 87 16 117/68 (84) 92 Room Air I & O 11/01/19 11/01/19 11/02/19 15:00 23:00 07:00 Intake Total 360 ml 360 ml Balance 360 ml 360 ml Current Medications: I have reviewed the current psychotropics carefully including drug interactions. Risk benefit ratio favors no change other than as noted in my dictated progress note. Diagnosis: Problems: (1) Anxiety disorder (2) Dementia, vascular, with delusions (3) Dementia, vascular, with depression (4) Dementia in Alzheimer's disease with delusions (5) Dementia in Alzheimer's disease with depression (6) Impulse control disorder ANAYELI POWELL MD Nov 02, 2019 20:56
[2019-11-03 06:02] VITALS: BP 116/70
[2019-11-03] MEDS: CHOLECALCIFEROL (VITAMIN D3) 50,000 UNIT CAPSULE PO SCH (08:28)
[2019-11-03] MEDS: SERTRALINE 50 MG TABLET. PO SCH (08:28)
[2019-11-03] MEDS: METOPROLOL TART IMMED RELEASE 25 MG TABLET PO SCH ×2 (08:29→19:35)
--- NOTE | 2019-11-03 16:00 | PN ---
DATE: 11/01/2019 PSYCHIATRIC PROGRESS NOTE This late entry 11/01/2019 covers elements not covered in my initial note. SUBJECTIVE: I met with the patient evening of 11/01/2019. Per KERLINE Lin, the patient slept 4-3/4 hours previous night. He has been in bed much of the day. He came out for breakfast and then was in the day room for a short period of time. Previous night, he was yelling in his sleep and trying to dig stool out of his brief. He did take a shower, remains confused. REVIEW OF SYSTEMS: No CV, , pulmonary, eye, ENT system symptoms on review. Reliability poor. He was pleasant, quite animated as I met with him, oblivious of his surroundings. MENTAL STATUS EXAM: Oriented to himself. Insight, judgment, recent and remote memory, attention, concentration, fund of knowledge poor, consistent with his diagnosis mentioned in my initial note. PLAN: No change from initial note. MAN Julius POWELL MD DR: NATACHA/heidy JOB#: [id number] / [id number]
--- NOTE | 2019-11-03 16:02 | PN ---
DATE: 11/02/2019 PSYCHIATRIC PROGRESS NOTE This late entry 11/02/2019 covers elements not covered in my initial note. SUBJECTIVE: I met with the patient evening of 11/02/2019. Per KERLINE Lin, the patient slept 7-1/4 hours previous night. He is compliant with his medications. He has been lying in bed, somewhat withdrawn, but again very animated, verbal as I met with him, but oriented just to himself. REVIEW OF SYSTEMS: No CV, , pulmonary, eye, ENT system symptoms on review. Reliability poor. MENTAL STATUS EXAM: Oriented to himself. Insight, judgment, recent and remote memory, attention, concentration, fund of knowledge poor, consistent with his diagnosis mentioned in my initial note. PLAN: No change from initial note. MAN Julius POWELL MD DR: NATACHA/heidy JOB#: [id number] / [id number]
[2019-11-03 16:20] VITALS: BP 130/88
[2019-11-03] MEDS: QUEtiapine 25 MG TABLET. PO SCH (17:08)
--- NOTE | 2019-11-03 20:54 | PDOC ---
Exam Note: Rafa Note: Please also refer to the separate dictated note~for this date of service dictated separately.~Patient seen individually. Discussed the patient with Nursing staff reviewed the chart.~Reviewed interim history and current functioning. Reviewed vital signs,~Labs/ Radiology~and current medications noted below. Continue current treatment with the changes noted in the dictated addendum note Assessment: Vital Signs/I&O: Vital Signs Date Time Temp Pulse Resp B/P (MAP) Pulse Ox O2 Delivery O2 Flow Rate FiO2 11/03/19 19:35 101 130/88 11/03/19 16:20 97.4 18 97 11/03/19 06:02 Room Air I & O 11/02/19 11/02/19 11/03/19 15:00 23:00 07:00 Intake Total 840 ml 600 ml 240 ml Balance 840 ml 600 ml 240 ml Current Medications: I have reviewed the current psychotropics carefully including drug interactions. Risk benefit ratio favors no change other than as noted in my dictated progress note. Diagnosis: Problems: (1) Anxiety disorder (2) Dementia, vascular, with delusions (3) Dementia, vascular, with depression (4) Dementia in Alzheimer's disease with delusions (5) Dementia in Alzheimer's disease with depression (6) Impulse control disorder ANAYELI POWELL MD Nov 03, 2019 20:54
[2019-11-04 06:03] VITALS: BP 117/70
[2019-11-04] MEDS: SERTRALINE 25 MG TABLET. PO SCH (08:53)
[2019-11-04] MEDS: METOPROLOL TART IMMED RELEASE 25 MG TABLET PO SCH ×2 (08:54→20:52)
[2019-11-04 09:39] LABS: BASO # 0.1 x10^3/uL (0.0-0.2); BASO % 1 % (0-3); EOS # 0.2 x10^3/uL (0.0-0.7); EOS % 3 % (0-3); HEMATOCRIT 43.6 % (39.0-53.0); HEMOGLOBIN 14.5 g/dL (13.0-17.5); LYMPH # 2.8 x10^3/uL (1.0-4.8); LYMPH % 37 % (24-48); MEAN CORPUSCULAR HEMOGLOBIN 28 pg (25-35); MEAN CORPUSCULAR HGB CONC 33 g/dL (31-37); MEAN CORPUSCULAR VOLUME 85 fL (79-100); MONO # 0.5 x10^3/uL (0.0-1.1); MONO % 6 % (0-9); NEUT # 4.1 x10^3uL (1.8-7.7); NEUT % 53 % (31-73); PLATELET COUNT 335 x10^3/uL (140-400); RED BLOOD COUNT 5.13 x10^6/uL (4.30-5.70); RED CELL DISTRIBUTION WIDTH 14.2 % (11.5-14.5); WHITE BLOOD COUNT 7.7 x10^3/uL (4.0-11.0)
[2019-11-04 09:53] LABS: ALBUMIN 3.7 g/dL (3.4-5.0); ALBUMIN/GLOBULIN RATIO 0.9 (1.0-1.7); CALCIUM 9.4 mg/dL (8.5-10.1); GFR 39.1; TOTAL BILIRUBIN 0.4 mg/dL (0.2-1.0); TOTAL PROTEIN 7.9 g/dL (6.4-8.2)
[2019-11-04 15:24] VITALS: BP 103/69
[2019-11-04] MEDS: QUEtiapine 25 MG TABLET. PO SCH (17:08)
--- NOTE | 2019-11-04 20:51 | PDOC ---
Exam Note: Rafa Note: Please also refer to the separate dictated note~for this date of service dictated separately.~Patient seen individually. Discussed the patient with Nursing staff reviewed the chart.~Reviewed interim history and current functioning. Reviewed vital signs,~Labs/ Radiology~and current medications noted below. Continue current treatment with the changes noted in the dictated addendum note Assessment: Vital Signs/I&O: Vital Signs Date Time Temp Pulse Resp B/P (MAP) Pulse Ox O2 Delivery O2 Flow Rate FiO2 11/04/19 15:24 98.2 81 16 103/69 (80) 95 11/04/19 06:03 Room Air I & O 11/03/19 11/03/19 11/04/19 15:00 23:00 07:00 Intake Total 480 ml 240 ml 240 ml Balance 480 ml 240 ml 240 ml Labs: Laboratory Tests Test 11/04/19 02:05 11/04/19 09:23 Glucose (Fingerstick) 123 mg/dL (70-99) H White Blood Count 7.7 x10^3/uL (4.0-11.0) Red Blood Count 5.13 x10^6/uL (4.30-5.70) Hemoglobin 14.5 g/dL (13.0-17.5) Hematocrit 43.6 % (39.0-53.0) Mean Corpuscular Volume 85 fL (79-100) Mean Corpuscular Hemoglobin 28 pg (25-35) Mean Corpuscular Hemoglobin Concent 33 g/dL (31-37) Red Cell Distribution Width 14.2 % (11.5-14.5) Platelet Count 335 x10^3/uL (140-400) Neutrophils (%) (Auto) 53 % (31-73) Lymphocytes (%) (Auto) 37 % (24-48) Monocytes (%) (Auto) 6 % (0-9) Eosinophils (%) (Auto) 3 % (0-3) Basophils (%) (Auto) 1 % (0-3) Neutrophils # (Auto) 4.1 x10^3uL (1.8-7.7) Lymphocytes # (Auto) 2.8 x10^3/uL (1.0-4.8) Monocytes # (Auto) 0.5 x10^3/uL (0.0-1.1) Eosinophils # (Auto) 0.2 x10^3/uL (0.0-0.7) Basophils # (Auto) 0.1 x10^3/uL (0.0-0.2) Sodium Level 143 mmol/L (136-145) Potassium Level 4.0 mmol/L (3.5-5.1) Chloride Level 106 mmol/L (98-107) Carbon Dioxide Level 25 mmol/L (21-32) Anion Gap 12 (6-14) Blood Urea Nitrogen 34 mg/dL (8-26) H Creatinine 2.0 mg/dL (0.7-1.3) H Estimated GFR (Cockcroft-Gault) 39.1 BUN/Creatinine Ratio 17 (6-20) Glucose Level 147 mg/dL (70-99) H Calcium Level 9.4 mg/dL (8.5-10.1) Total Bilirubin 0.4 mg/dL (0.2-1.0) Aspartate Amino Transferase (AST) 14 U/L (15-37) L Alanine Aminotransferase (ALT) 21 U/L (16-63) Alkaline Phosphatase 92 U/L (46-116) Total Protein 7.9 g/dL (6.4-8.2) Albumin 3.7 g/dL (3.4-5.0) Albumin/Globulin Ratio 0.9 (1.0-1.7) L Current Medications: Meds: Current Medications Medications (Trade) Dose Ordered Sig/Ирина Route PRN Reason Start Time Stop Time Status Last Admin Dose Admin Sertraline HCl (Zoloft) 75 mg DAILY PO 11/04/19 09:00 11/04/19 08:53 I have reviewed the current psychotropics carefully including drug interactions. Risk benefit ratio favors no change other than as noted in my dictated progress note. Diagnosis: Problems: (1) Anxiety disorder (2) Dementia, vascular, with delusions (3) Dementia, vascular, with depression (4) Dementia in Alzheimer's disease with delusions (5) Dementia in Alzheimer's disease with depression (6) Impulse control disorder ANAYELI POWELL MD Nov 04, 2019 20:51
[2019-11-05 05:43] VITALS: BP 109/69
[2019-11-05 08:08] VITALS: BP 95/64
[2019-11-05] MEDS: SERTRALINE 25 MG TABLET. PO SCH (08:09)
[2019-11-05] MEDS: METOPROLOL TART IMMED RELEASE 25 MG TABLET PO SCH ×2 (08:09→20:12)
[2019-11-05 08:15] LABS: BILIRUBIN,URINE NEG (NEG); CLARITY,URINE TURBID; COLOR,URINE YELLOW; GLUCOSE,URINE NEG (NEG)
[2019-11-05 08:16] LABS: BACTERIA,URINE MOD /HPF (0-FEW); NITRITE,URINE NEG (NEG); SQUAMOUS EPITHELIAL CELL,UR OCC /LPF; UROBILINOGEN,URINE 0.2 mg/dL (0.2 mg/dL); WBC,URINE >40 /HPF (0-4)
[2019-11-05 15:27] VITALS: BP 99/67
[2019-11-05] MEDS: QUEtiapine 25 MG TABLET. PO SCH (17:10)
--- NOTE | 2019-11-05 20:53 | PDOC ---
Exam Note: Rafa Note: Please also refer to the separate dictated note~for this date of service dictated separately.~Patient seen individually. Discussed the patient with Nursing staff reviewed the chart.~Reviewed interim history and current functioning. Reviewed vital signs,~Labs/ Radiology~and current medications noted below. Continue current treatment with the changes noted in the dictated addendum note Assessment: Vital Signs/I&O: Vital Signs Date Time Temp Pulse Resp B/P (MAP) Pulse Ox O2 Delivery O2 Flow Rate FiO2 11/05/19 20:12 89 99/67 11/05/19 15:27 98.2 18 96 11/04/19 06:03 Room Air I & O 11/04/19 11/04/19 11/05/19 15:00 23:00 07:00 Intake Total 480 ml 240 ml Balance 480 ml 240 ml Labs: Laboratory Tests Test 11/05/19 08:00 Urine Collection Type Unknown Urine Color Yellow Urine Clarity Turbid Urine pH 6.0 Urine Specific [place] 1.025 Urine Protein 100 mg/dl (NEG-TRACE) Urine Glucose (UA) Neg mg/dL (NEG) Urine Ketones (Stick) Neg mg/dL (NEG) Urine Blood Mod (NEG) Urine Nitrite Neg (NEG) Urine Bilirubin Neg (NEG) Urine Urobilinogen Dipstick 0.2 mg/dL (0.2 mg/dL) Urine Leukocyte Esterase Large (NEG) Urine RBC 6-10 /HPF (0-2) Urine WBC >40 /HPF (0-4) Urine Squamous Epithelial Cells Occ /LPF Urine Transitional Epithelial Cells Occ /LPF Urine Bacteria Mod /HPF (0-FEW) Current Medications: I have reviewed the current psychotropics carefully including drug interactions. Risk benefit ratio favors no change other than as noted in my dictated progress note. Diagnosis: Problems: (1) Anxiety disorder (2) Dementia, vascular, with delusions (3) Dementia, vascular, with depression (4) Dementia in Alzheimer's disease with delusions (5) Dementia in Alzheimer's disease with depression (6) Impulse control disorder ANAYELI POWELL MD Nov 05, 2019 20:53
--- NOTE | 2019-11-05 23:25 | PN ---
DATE: 11/04/2019 PSYCHIATRIC PROGRESS NOTE This late entry 11/04/2019, covers elements not covered in my initial note. SUBJECTIVE: I met with the patient evening of 11/04/2019. The patient slept 6-1/4 hours previous night. He has been isolative, met with him in his room. He is lying in bed. REVIEW OF SYSTEMS: No CV, , pulmonary, eye, ENT system symptoms on review. Reliability poor. MENTAL STATUS EXAM: Oriented to himself. Insight, judgment, recent and remote memory, attention, concentration, fund of knowledge poor, consistent with his diagnosis mentioned in my initial note. PLAN: No change from initial note. MAN Julius POWELL MD DR: NATACHA/heidy JOB#: [id number] / [id number]
--- NOTE | 2019-11-05 23:31 | PN ---
DATE: 11/03/2019 PSYCHIATRIC PROGRESS NOTE This late entry 11/03/2019 covers elements not covered in my initial note. SUBJECTIVE: I met with the patient evening of 11/03/2019. Per KERLINE Hart, the patient slept 5-1/4 hours previous night. He remains confused, isolative in his room, but denies being depressed as I questioned him. REVIEW OF SYSTEMS: No CV, , pulmonary, eye system symptoms on review. Gait unsteady with walker, though he refuses to use walker. MENTAL STATUS EXAM: Oriented to himself. Insight, judgment, recent and remote memory, attention, concentration, fund of knowledge poor, consistent with his diagnosis mentioned in my initial note. PLAN: No change from initial note. MAN Julius POWELL MD DR: NATACHA/heidy JOB#: [id number] / [id number]
[2019-11-06 05:59] VITALS: BP 94/61
[2019-11-06] MEDS: METOPROLOL TART IMMED RELEASE 25 MG TABLET PO SCH ×2 (08:02→21:05)
[2019-11-06] MEDS: SERTRALINE 25 MG TABLET. PO SCH (08:02)
[2019-11-06 15:55] VITALS: BP 108/63
[2019-11-06] MEDS: QUEtiapine 25 MG TABLET. PO SCH (16:54)
--- NOTE | 2019-11-06 20:52 | PDOC ---
Exam Note: Rafa Note: Please also refer to the separate dictated note~for this date of service dictated separately.~Patient seen individually. Discussed the patient with Nursing staff reviewed the chart.~Reviewed interim history and current functioning. Reviewed vital signs,~Labs/ Radiology~and current medications noted below. Continue current treatment with the changes noted in the dictated addendum note Assessment: Vital Signs/I&O: Vital Signs Date Time Temp Pulse Resp B/P (MAP) Pulse Ox O2 Delivery O2 Flow Rate FiO2 11/06/19 15:55 97.4 100 20 108/63 (78) 95 11/04/19 06:03 Room Air I & O 11/05/19 11/05/19 11/06/19 15:00 23:00 07:00 Intake Total 960 ml 360 ml 120 ml Balance 960 ml 360 ml 120 ml Current Medications: I have reviewed the current psychotropics carefully including drug interactions. Risk benefit ratio favors no change other than as noted in my dictated progress note. Diagnosis: Problems: (1) Anxiety disorder (2) Dementia, vascular, with delusions (3) Dementia, vascular, with depression (4) Dementia in Alzheimer's disease with delusions (5) Dementia in Alzheimer's disease with depression (6) Impulse control disorder ANAYELI POWELL MD Nov 06, 2019 20:51
--- NOTE | 2019-11-06 23:40 | PN ---
DATE: 11/05/2019 PSYCHIATRIC PROGRESS NOTE This late entry 11/05/2019 covers elements not covered in my initial note. SUBJECTIVE: I met with the patient evening of 11/05/2019. Per KERLINE Freedman, the patient slept 8-3/4 hours previous night. UA has reflex to culture. We will treat as indicated. REVIEW OF SYSTEMS: No CV, , pulmonary, eye, ENT system symptoms on review. Reliability poor. MENTAL STATUS EXAM: Oriented to himself. Insight, judgment, recent and remote memory, attention, concentration, fund of knowledge poor, consistent with his diagnosis mentioned in my initial note. PLAN: No change from initial note. Treat the UTI if culture positive. MAN Julius POWELL MD DR: NATACHA/heidy JOB#: [id number] / [id number]
[2019-11-07 06:10] VITALS: BP 120/77
[2019-11-07] MEDS: SERTRALINE 25 MG TABLET. PO SCH (08:17)
[2019-11-07] MEDS: METOPROLOL TART IMMED RELEASE 25 MG TABLET PO SCH ×2 (08:17→19:30)
[2019-11-07 16:15] VITALS: BP 113/79
[2019-11-07] MEDS: QUEtiapine 25 MG TABLET. PO SCH (16:57)
--- NOTE | 2019-11-07 19:19 | PN ---
DATE: 11/06/2019 PSYCHIATRIC PROGRESS NOTE This late entry 11/06/2019 covers the elements not covered in my initial note. SUBJECTIVE: I met with the patient in the evening of 11/06/2019. The patient slept 8 hours previous night per KERLINE Rodriges. UA has reflex to culture and sensitivity. He has been withdrawn, isolative, not aggressive. REVIEW OF SYSTEMS: No CV, , pulmonary, eye, ENT system symptoms on review. Reliability is poor. MENTAL STATUS EXAM: Oriented to himself. Insight, judgment, recent and remote memory, attention, concentration, fund of knowledge poor, consistent with his diagnosis. IMPRESSION: Major neurocognitive disorder, Alzheimer, vascular with delusion, depression, behavioral disturbance; anxiety disorder, unspecified; impulse control disorder, unspecified. Rest unchanged. PLAN: Continue psychotropics from initial note. Treat UTI if culture positive. Maintain Zoloft, Seroquel along with PRNs of Zyprexa and Ativan. Rest unchanged for now. MAN Julius POWELL MD DR: NATACHA/heidy JOB#: [id number] / [id number]
--- NOTE | 2019-11-07 20:58 | PDOC ---
Exam Note: Rafa Note: Please also refer to the separate dictated note~for this date of service dictated separately.~Patient seen individually. Discussed the patient with Nursing staff reviewed the chart.~Reviewed interim history and current functioning. Reviewed vital signs,~Labs/ Radiology~and current medications noted below. Continue current treatment with the changes noted in the dictated addendum note Assessment: Vital Signs/I&O: Vital Signs Date Time Temp Pulse Resp B/P (MAP) Pulse Ox O2 Delivery O2 Flow Rate FiO2 11/07/19 19:30 91 113/79 11/07/19 16:15 97.6 16 98 Room Air I & O 11/06/19 11/06/19 11/07/19 15:00 23:00 07:00 Intake Total 840 ml 580 ml Balance 840 ml 580 ml Current Medications: I have reviewed the current psychotropics carefully including drug interactions. Risk benefit ratio favors no change other than as noted in my dictated progress note. Diagnosis: Problems: (1) Anxiety disorder (2) Dementia, vascular, with delusions (3) Dementia, vascular, with depression (4) Dementia in Alzheimer's disease with delusions (5) Dementia in Alzheimer's disease with depression (6) Impulse control disorder ANAYELI POWELL MD Nov 07, 2019 20:58
[2019-11-08 05:10] VITALS: BP 120/81
[2019-11-08] MEDS: METOPROLOL TART IMMED RELEASE 25 MG TABLET PO SCH ×2 (07:59→20:56)
[2019-11-08] MEDS: SERTRALINE 25 MG TABLET. PO SCH (07:59)
[2019-11-08] MEDS: CEFDINIR 300 MG CAPSULE PO SCH (15:00)
[2019-11-08 15:56] VITALS: BP 168/78
[2019-11-08] MEDS: QUEtiapine 25 MG TABLET. PO SCH (17:00)
--- NOTE | 2019-11-08 20:52 | PDOC ---
Exam Note: Rafa Note: Please also refer to the separate dictated note~for this date of service dictated separately.~Patient seen individually. Discussed the patient with Nursing staff reviewed the chart.~Reviewed interim history and current functioning. Reviewed vital signs,~Labs/ Radiology~and current medications noted below. Continue current treatment with the changes noted in the dictated addendum note Assessment: Vital Signs/I&O: Vital Signs Date Time Temp Pulse Resp B/P (MAP) Pulse Ox O2 Delivery O2 Flow Rate FiO2 11/08/19 15:56 98.9 106 18 168/78 (108) 96 11/08/19 05:10 Room Air I & O 11/07/19 11/07/19 11/08/19 14:59 22:59 06:59 Intake Total 960 ml 340 ml Balance 960 ml 340 ml Current Medications: Meds: Current Medications Medications (Trade) Dose Ordered Sig/Ирина Route PRN Reason Start Time Stop Time Status Last Admin Dose Admin Cefdinir (Omnicef) 300 mg BID PO 11/08/19 15:00 11/14/19 14:59 11/08/19 15:00 I have reviewed the current psychotropics carefully including drug interactions. Risk benefit ratio favors no change other than as noted in my dictated progress note. Diagnosis: Problems: (1) Anxiety disorder (2) Dementia, vascular, with delusions (3) Dementia, vascular, with depression (4) Dementia in Alzheimer's disease with delusions (5) Dementia in Alzheimer's disease with depression (6) Impulse control disorder ANAYELI POWELL MD Nov 08, 2019 20:52
[2019-11-08] MEDS: LACTOBACILLUS RHAMNOSUS GG 1 CAPSULE. PO SCH (20:56)
--- NOTE | 2019-11-08 23:07 | PN ---
DATE: 11/07/2019 This late entry 11/07/2019 covers elements not covered in my initial note. SUBJECTIVE: I met with the patient evening of 11/07/2019. Per KERLINE Fonseca, the patient slept 7-1/4 hours previous night. He has been withdrawn. Urine has reflex to culture. REVIEW OF SYSTEMS: No CV, , pulmonary, eye, ENT system symptoms on review. Reliability poor. MENTAL STATUS EXAM: Oriented to himself. Insight, judgment, recent and remote memory, attention, concentration, fund of knowledge poor, consistent with his diagnosis mentioned in my initial note. PLAN: No change from initial note. Treat the UTI once culture returns. Rest unchanged. MAN Julius POWELL MD DR: NATACHA/heidy JOB#: [id number] / [id number]
[2019-11-09 06:35] VITALS: BP 98/61
[2019-11-09 08:47] VITALS: BP 91/61
[2019-11-09] MEDS: METOPROLOL TART IMMED RELEASE 25 MG TABLET PO SCH ×2 (08:49→20:10)
[2019-11-09] MEDS: CEFDINIR 300 MG CAPSULE PO SCH ×2 (08:50→20:10)
[2019-11-09] MEDS: SERTRALINE 25 MG TABLET. PO SCH (08:50)
[2019-11-09] MEDS: LACTOBACILLUS RHAMNOSUS GG 1 CAPSULE. PO SCH ×2 (08:50→20:09)
[2019-11-09 09:33] LABS: BASO # 0.1 x10^3/uL (0.0-0.2); BASO % 1 % (0-3); EOS # 0.2 x10^3/uL (0.0-0.7); EOS % 3 % (0-3); HEMATOCRIT 44.9 % (39.0-53.0); HEMOGLOBIN 14.7 g/dL (13.0-17.5); LYMPH % 21 % (24-48); MEAN CORPUSCULAR HEMOGLOBIN 28 pg (25-35); MEAN CORPUSCULAR HGB CONC 33 g/dL (31-37); MEAN CORPUSCULAR VOLUME 87 fL (79-100); MONO # 0.6 x10^3/uL (0.0-1.1); MONO % 6 % (0-9); NEUT # 6.7 x10^3uL (1.8-7.7); NEUT % 70 % (31-73); PLATELET COUNT 310 x10^3/uL (140-400); RED BLOOD COUNT 5.19 x10^6/uL (4.30-5.70); RED CELL DISTRIBUTION WIDTH 14.1 % (11.5-14.5); WHITE BLOOD COUNT 9.6 x10^3/uL (4.0-11.0)
[2019-11-09 09:45] LABS: ALBUMIN 3.6 g/dL (3.4-5.0); ALBUMIN/GLOBULIN RATIO 0.8 (1.0-1.7); CALCIUM 9.2 mg/dL (8.5-10.1); CREATININE 1.6 mg/dL (0.7-1.3); GFR 50.6; POTASSIUM 4.1 mmol/L (3.5-5.1); TOTAL BILIRUBIN 0.2 mg/dL (0.2-1.0)
[2019-11-09 16:14] VITALS: BP 110/70
[2019-11-09] MEDS: QUEtiapine 25 MG TABLET. PO SCH (17:21)
--- NOTE | 2019-11-09 21:03 | PDOC ---
Exam Note: Rafa Note: Please also refer to the separate dictated note~for this date of service dictated separately.~Patient seen individually. Discussed the patient with Nursing staff reviewed the chart.~Reviewed interim history and current functioning. Reviewed vital signs,~Labs/ Radiology~and current medications noted below. Continue current treatment with the changes noted in the dictated addendum note Assessment: Vital Signs/I&O: Vital Signs Date Time Temp Pulse Resp B/P (MAP) Pulse Ox O2 Delivery O2 Flow Rate FiO2 11/09/19 20:10 104 110/70 11/09/19 16:14 98.3 22 97 11/09/19 06:35 Room Air I & O 11/08/19 11/08/19 11/09/19 15:00 23:00 07:00 Intake Total 1140 ml 580 ml Balance 1140 ml 580 ml Labs: Laboratory Tests Test 11/09/19 09:24 White Blood Count 9.6 x10^3/uL (4.0-11.0) Red Blood Count 5.19 x10^6/uL (4.30-5.70) Hemoglobin 14.7 g/dL (13.0-17.5) Hematocrit 44.9 % (39.0-53.0) Mean Corpuscular Volume 87 fL (79-100) Mean Corpuscular Hemoglobin 28 pg (25-35) Mean Corpuscular Hemoglobin Concent 33 g/dL (31-37) Red Cell Distribution Width 14.1 % (11.5-14.5) Platelet Count 310 x10^3/uL (140-400) Neutrophils (%) (Auto) 70 % (31-73) Lymphocytes (%) (Auto) 21 % (24-48) L Monocytes (%) (Auto) 6 % (0-9) Eosinophils (%) (Auto) 3 % (0-3) Basophils (%) (Auto) 1 % (0-3) Neutrophils # (Auto) 6.7 x10^3uL (1.8-7.7) Lymphocytes # (Auto) 2.0 x10^3/uL (1.0-4.8) Monocytes # (Auto) 0.6 x10^3/uL (0.0-1.1) Eosinophils # (Auto) 0.2 x10^3/uL (0.0-0.7) Basophils # (Auto) 0.1 x10^3/uL (0.0-0.2) Sodium Level 143 mmol/L (136-145) Potassium Level 4.1 mmol/L (3.5-5.1) Chloride Level 105 mmol/L (98-107) Carbon Dioxide Level 29 mmol/L (21-32) Anion Gap 9 (6-14) Blood Urea Nitrogen 30 mg/dL (8-26) H Creatinine 1.6 mg/dL (0.7-1.3) H Estimated GFR (Cockcroft-Gault) 50.6 BUN/Creatinine Ratio 19 (6-20) Glucose Level 146 mg/dL (70-99) H Calcium Level 9.2 mg/dL (8.5-10.1) Total Bilirubin 0.2 mg/dL (0.2-1.0) Aspartate Amino Transferase (AST) 23 U/L (15-37) Alanine Aminotransferase (ALT) 42 U/L (16-63) Alkaline Phosphatase 98 U/L (46-116) Total Protein 8.0 g/dL (6.4-8.2) Albumin 3.6 g/dL (3.4-5.0) Albumin/Globulin Ratio 0.8 (1.0-1.7) L Current Medications: I have reviewed the current psychotropics carefully including drug interactions. Risk benefit ratio favors no change other than as noted in my dictated progress note. 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
--- NOTE | 2019-11-09 21:34 | PN ---
DATE: 11/08/2019 PSYCHIATRIC PROGRESS NOTE This late entry 11/08/2019 covers elements not covered in my initial note. SUBJECTIVE: I met with the patient evening of 11/08/2019. Per report from KERLINE Fonseca, the patient slept 7 hours previous night. He was combative the previous evening, but easily redirected. He does have a UTI, started on antibiotics. I met with him in his room. REVIEW OF SYSTEMS: No CV, , pulmonary, eye, ENT system symptoms on review. Reliability poor. MENTAL STATUS EXAM: Oriented to himself. Insight, judgment, recent and remote memory, attention, concentration, fund of knowledge poor, consistent with his diagnosis mentioned in my initial note. PLAN: No change from initial note. MAN Julius POWELL MD DR: NATACHA/heidy JOB#: [id number] / [id number]
[2019-11-10 06:19] VITALS: BP 99/61
[2019-11-10] MEDS: LACTOBACILLUS RHAMNOSUS GG 1 CAPSULE. PO SCH ×2 (08:24→19:41)
[2019-11-10] MEDS: METOPROLOL TART IMMED RELEASE 25 MG TABLET PO SCH ×2 (08:24→19:41)
[2019-11-10] MEDS: CEFDINIR 300 MG CAPSULE PO SCH ×2 (08:24→19:41)
[2019-11-10] MEDS: CHOLECALCIFEROL (VITAMIN D3) 50,000 UNIT CAPSULE PO SCH (08:24)
[2019-11-10] MEDS: SERTRALINE 25 MG TABLET. PO SCH (08:25)
[2019-11-10 15:58] VITALS: BP 94/65
[2019-11-10] MEDS: QUEtiapine 25 MG TABLET. PO SCH (17:00)
--- NOTE | 2019-11-10 21:02 | PDOC ---
Exam Note: Rafa Note: Please also refer to the separate dictated note~for this date of service dictated separately.~Patient seen individually. Discussed the patient with Nursing staff reviewed the chart.~Reviewed interim history and current functioning. Reviewed vital signs,~Labs/ Radiology~and current medications noted below. Continue current treatment with the changes noted in the dictated addendum note Assessment: Vital Signs/I&O: Vital Signs Date Time Temp Pulse Resp B/P (MAP) Pulse Ox O2 Delivery O2 Flow Rate FiO2 11/10/19 19:41 88 94/65 11/10/19 15:58 98.2 18 95 11/09/19 06:35 Room Air I & O 11/09/19 11/09/19 11/10/19 15:00 23:00 07:00 Intake Total 600 ml 200 ml 240 ml Balance 600 ml 200 ml 240 ml Current Medications: I have reviewed the current psychotropics carefully including drug interactions. Risk benefit ratio favors no change other than as noted in my dictated progress note. 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
[2019-11-11 05:40] VITALS: BP 100/57
[2019-11-11] MEDS: METOPROLOL TART IMMED RELEASE 25 MG TABLET PO SCH ×2 (09:00→19:44)
[2019-11-11] MEDS: LACTOBACILLUS RHAMNOSUS GG 1 CAPSULE. PO SCH ×2 (09:22→19:44)
[2019-11-11] MEDS: CEFDINIR 300 MG CAPSULE PO SCH ×2 (09:22→19:44)
[2019-11-11] MEDS: SERTRALINE 25 MG TABLET. PO SCH (09:22)
[2019-11-11 16:02] VITALS: BP 106/61
[2019-11-11] MEDS: QUEtiapine 25 MG TABLET. PO SCH (17:00)
--- NOTE | 2019-11-11 22:33 | PDOC ---
Exam Note: Rafa Note: Please also refer to the separate dictated note~for this date of service dictated separately.~Patient seen individually. Discussed the patient with Nursing staff reviewed the chart.~Reviewed interim history and current functioning. Reviewed vital signs,~Labs/ Radiology~and current medications noted below. Continue current treatment with the changes noted in the dictated addendum note Assessment: Vital Signs/I&O: Vital Signs Date Time Temp Pulse Resp B/P (MAP) Pulse Ox O2 Delivery O2 Flow Rate FiO2 11/11/19 19:44 103 106/61 11/11/19 16:02 98.0 20 97 11/09/19 06:35 Room Air I & O 11/10/19 11/10/19 11/11/19 15:00 23:00 07:00 Intake Total 840 ml 720 ml Balance 840 ml 720 ml Current Medications: I have reviewed the current psychotropics carefully including drug interactions. Risk benefit ratio favors no change other than as noted in my dictated progress note. 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
[2019-11-12 05:52] VITALS: BP 105/71
[2019-11-12] MEDS: LACTOBACILLUS RHAMNOSUS GG 1 CAPSULE. PO SCH ×2 (07:40→19:48)
[2019-11-12] MEDS: CEFDINIR 300 MG CAPSULE PO SCH ×2 (07:41→19:48)
[2019-11-12] MEDS: SERTRALINE 25 MG TABLET. PO SCH (07:41)
[2019-11-12] MEDS: METOPROLOL TART IMMED RELEASE 25 MG TABLET PO SCH ×2 (07:42→19:48)
[2019-11-12 16:12] VITALS: BP 108/66
--- NOTE | 2019-11-12 16:32 | PN ---
DATE: 11/09/2019 PSYCHIATRIC PROGRESS NOTE This late entry of November 09 covers elements not covered in my initial note. SUBJECTIVE: I met with the patient evening of November 09 and staffed at a treatment team meeting with the entire team. The patient is sleeping average 6 hours, appetite 75%. He remains confused, but compliant with cares and assessment, coming out more from his room, which is an improvement. No aggression and combativeness noted, which is what prompted hospitalization. REVIEW OF SYSTEMS: No CV, , pulmonary, eye, ENT system symptoms on review. Reliability poor. MENTAL STATUS EXAM: Oriented to himself. Insight, judgment, recent, remote memory, attention, concentration, fund of knowledge poor, consistent with his diagnosis. IMPRESSION: Major neurocognitive disorder, Alzheimer's, vascular with delusion, depression, behavioral disturbance; anxiety disorder, unspecified; impulse control disorder, unspecified. Rest unchanged. PLAN: No change from initial note. ANAYELI POWELL MD DR: NATACHA/heidy JOB#: [id number] / [id number]
[2019-11-12] MEDS: QUEtiapine 25 MG TABLET. PO SCH (17:00)
--- NOTE | 2019-11-12 20:51 | PDOC ---
Exam Note: Rafa Note: Please also refer to the separate dictated note~for this date of service dictated separately.~Patient seen individually. Discussed the patient with Nursing staff reviewed the chart.~Reviewed interim history and current functioning. Reviewed vital signs,~Labs/ Radiology~and current medications noted below. Continue current treatment with the changes noted in the dictated addendum note Assessment: Vital Signs/I&O: Vital Signs Date Time Temp Pulse Resp B/P (MAP) Pulse Ox O2 Delivery O2 Flow Rate FiO2 11/12/19 19:48 101 108/66 11/12/19 16:12 97.2 20 97 11/09/19 06:35 Room Air I & O 11/11/19 11/11/19 11/12/19 15:00 23:00 07:00 Intake Total 360 ml 960 ml Balance 360 ml 960 ml Current Medications: I have reviewed the current psychotropics carefully including drug interactions. Risk benefit ratio favors no change other than as noted in my dictated progress note. 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
--- NOTE | 2019-11-13 00:23 | PN ---
DATE: 11/10/2019 PSYCHIATRIC PROGRESS NOTE This late entry 11/10/2019 covers elements not covered in my initial note. Per KERLINE Ruiz, the patient slept 7 hours previous night. He tends to go back to his room, but is coming out to the day room, more than before. REVIEW OF SYSTEMS: No CV, , pulmonary, eye, ENT system symptoms on review. He has not been aggressive, remains confused. MENTAL STATUS EXAM: Oriented to himself. Insight, judgment, recent and remote memory, attention, concentration, fund of knowledge poor, consistent with his diagnosis. He is quite animated as usual, as I met with him individually smiling, shaking my hand, asking me how I was doing oblivious if he has seen me before this. LABORATORY DATA: Reviewed. IMPRESSION: Unchanged from initial note. PLAN: No change from initial note. MAN Julius POWELL MD DR: NATACHA/heidy JOB#: [id number] / [id number]
[2019-11-13 06:05] VITALS: BP 99/57
[2019-11-13] MEDS: LACTOBACILLUS RHAMNOSUS GG 1 CAPSULE. PO SCH ×2 (08:29→21:07)
[2019-11-13] MEDS: CEFDINIR 300 MG CAPSULE PO SCH ×2 (08:29→21:07)
[2019-11-13] MEDS: METOPROLOL TART IMMED RELEASE 25 MG TABLET PO SCH ×2 (08:30→21:07)
[2019-11-13] MEDS: SERTRALINE 25 MG TABLET. PO SCH (08:30)
[2019-11-13 15:17] VITALS: BP 103/63
[2019-11-13] MEDS: QUEtiapine 25 MG TABLET. PO SCH (16:27)
--- NOTE | 2019-11-13 21:36 | PDOC ---
Exam Note: Rafa Note: Please also refer to the separate dictated note~for this date of service dictated separately.~Patient seen individually. Discussed the patient with Nursing staff reviewed the chart.~Reviewed interim history and current functioning. Reviewed vital signs,~Labs/ Radiology~and current medications noted below. Continue current treatment with the changes noted in the dictated addendum note Assessment: Vital Signs/I&O: Vital Signs Date Time Temp Pulse Resp B/P (MAP) Pulse Ox O2 Delivery O2 Flow Rate FiO2 11/13/19 21:07 100 103/63 11/13/19 15:17 98.3 20 99 11/09/19 06:35 Room Air I & O 11/12/19 11/12/19 11/13/19 15:00 23:00 07:00 Intake Total 360 ml 640 ml Balance 360 ml 640 ml Current Medications: I have reviewed the current psychotropics carefully including drug interactions. Risk benefit ratio favors no change other than as noted in my dictated progress note. 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
--- NOTE | 2019-11-14 01:30 | PN ---
DATE: 11/12/2019 PSYCHIATRIC PROGRESS NOTE This late entry, 11/12/2019, covers elements not covered in my initial note. SUBJECTIVE: I met with the patient in the evening. Per Angle RN, the patient slept 7 hours previous night. He was somewhat hypotensive. BP meds were held. We will defer to Dr. Blanco. He was getting more aggravated in the evening, but redirectable. REVIEW OF SYSTEMS: No CV, , pulmonary, eye, ENT system symptoms on review. Reliability poor. MENTAL STATUS EXAM: Oriented to himself. Insight, judgment, recent and remote memory, attention, concentration, fund of knowledge poor, consistent with his diagnosis. He was quite animated, verbal, pretended as if he remembered me, but in fact he did not. LABORATORY DATA: Reviewed. IMPRESSION: Unchanged from initial note. PLAN: No change from initial note. MAN Julius POWELL MD DR: NATACHA/heidy JOB#: [id number] / [id number]
--- NOTE | 2019-11-14 01:33 | PN ---
DATE: 11/11/2019 PSYCHIATRIC PROGRESS NOTE. This late entry of 11/11/2019 covers the elements not covered in my initial note. SUBJECTIVE: I met with the patient in the evening of 11/11/2019. The patient slept 7-1/2 hours previous night. He remains confused, somewhat withdrawn, but did come out to the day room. REVIEW OF SYSTEMS: No CV, , pulmonary, eye system symptoms on review. Reliability poor. MENTAL STATUS EXAM: Oriented to himself. Insight, judgment, recent and remote memory, attention, concentration, fund of knowledge poor, consistent with his diagnosis mentioned in my initial note. PLAN: No change from initial note. MAN Julius POWELL MD DR: NATACHA/heidy JOB#: [id number] / [id number]
[2019-11-14 05:37] VITALS: BP 96/57
[2019-11-14] MEDS: LACTOBACILLUS RHAMNOSUS GG 1 CAPSULE. PO SCH ×2 (08:28→21:09)
[2019-11-14] MEDS: METOPROLOL TART IMMED RELEASE 25 MG TABLET PO SCH ×2 (08:28→21:10)
[2019-11-14] MEDS: CEFDINIR 300 MG CAPSULE PO SCH (08:28)
[2019-11-14] MEDS: SERTRALINE 25 MG TABLET. PO SCH (08:28)
[2019-11-14 15:57] VITALS: BP 103/67
[2019-11-14] MEDS: QUEtiapine 25 MG TABLET. PO SCH (17:29)
--- NOTE | 2019-11-14 21:51 | PDOC ---
Exam Note: Rafa Note: Please also refer to the separate dictated note~for this date of service dictated separately.~Patient seen individually. Discussed the patient with Nursing staff reviewed the chart.~Reviewed interim history and current functioning. Reviewed vital signs,~Labs/ Radiology~and current medications noted below. Continue current treatment with the changes noted in the dictated addendum note Assessment: Vital Signs/I&O: Vital Signs Date Time Temp Pulse Resp B/P (MAP) Pulse Ox O2 Delivery O2 Flow Rate FiO2 11/14/19 21:10 102 103/67 11/14/19 15:57 98.4 18 99 11/09/19 06:35 Room Air I & O 11/13/19 11/13/19 11/14/19 15:00 23:00 07:00 Intake Total 360 ml 480 ml Balance 360 ml 480 ml Current Medications: I have reviewed the current psychotropics carefully including drug interactions. Risk benefit ratio favors no change other than as noted in my dictated progress note. 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
--- NOTE | 2019-11-14 23:26 | PN ---
DATE: 11/13/2019 PSYCHIATRIC PROGRESS NOTE This late entry 11/13/2019 covers the elements not covered in my initial note. SUBJECTIVE: I met with the patient in the evening. The patient slept 6-1/4 hours previous night per KERLINE Saldaña. He has been coming out of the dayroom little bit more compliant. REVIEW OF SYSTEMS: No CV, , pulmonary, eye system symptoms on review. MENTAL STATUS EXAM: Oriented to himself. Insight, judgment, recent and remote memory, attention, concentration, fund of knowledge poor, consistent with his diagnosis mentioned in my initial note. PLAN: No change from initial note. MAN Julius POWELL MD DR: NATACHA/heidy JOB#: [id number] / [id number]
[2019-11-15 06:33] VITALS: BP 98/63
[2019-11-15] MEDS: SERTRALINE 25 MG TABLET. PO SCH (08:32)
[2019-11-15] MEDS: LACTOBACILLUS RHAMNOSUS GG 1 CAPSULE. PO SCH ×2 (08:32→20:41)
[2019-11-15] MEDS: METOPROLOL TART IMMED RELEASE 25 MG TABLET PO SCH ×2 (08:33→20:41)
[2019-11-15 15:35] VITALS: BP 102/65
[2019-11-15] MEDS: QUEtiapine 25 MG TABLET. PO SCH (17:13)
[2019-11-15] MEDS ORDERED: ACET325T9 PO (21:49)
[2019-11-15] MEDS ORDERED: L. R1CAP2 PO (21:50)
[2019-11-15] MEDS ORDERED: CHOL500021 PO (21:50)
[2019-11-15] MEDS ORDERED: MAG-115 PO (21:53)
[2019-11-15] MEDS ORDERED: MAGN24003 PO (21:53)
[2019-11-15] MEDS ORDERED: METH28OI2 TP (21:53)
--- NOTE | 2019-11-15 21:53 | PDOC ---
Exam Note: Rafa Note: Please also refer to the separate dictated note~for this date of service dictated separately.~Patient seen individually. Discussed the patient with Nursing staff reviewed the chart.~Reviewed interim history and current functioning. Reviewed vital signs,~Labs/ Radiology~and current medications noted below. Continue current treatment with the changes noted in the dictated addendum note Assessment: Vital Signs/I&O: Vital Signs Date Time Temp Pulse Resp B/P (MAP) Pulse Ox O2 Delivery O2 Flow Rate FiO2 11/15/19 20:41 101 102/65 11/15/19 15:35 97.7 18 99 I & O 11/14/19 11/14/19 11/15/19 15:00 23:00 07:00 Intake Total 720 ml 480 ml Balance 720 ml 480 ml Current Medications: I have reviewed the current psychotropics carefully including drug interactions. Risk benefit ratio favors no change other than as noted in my dictated progress note. Diagnosis: Problems: (1) Anxiety disorder (2) Dementia, vascular, with delusions (3) Dementia, vascular, with depression (4) Dementia in Alzheimer's disease with delusions (5) Dementia in Alzheimer's disease with depression (6) Impulse control disorder ANAYELI POWELL MD Nov 15, 2019 21:53
[2019-11-15] MEDS ORDERED: METO25TA4 PO (21:54)
[2019-11-15] MEDS ORDERED: MORP10SO SL (21:58)
[2019-11-15] MEDS ORDERED: OLAN5TAB9 PO (21:59)
[2019-11-15] MEDS ORDERED: QUET25TA5 PO (22:00)
[2019-11-15] MEDS ORDERED: SERT25TA PO (22:01)
--- NOTE | 2019-11-16 04:43 | PN ---
DATE: 11/14/2019 PSYCHIATRIC PROGRESS NOTE This late entry 11/14/2019 covers elements not covered in my initial note. SUBJECTIVE: I met with the patient evening of 11/14/2019. Per KERLINE Fonscea, the patient slept 6 hours previous night. He remains confused, but compliant, less withdrawn, coming out of the day room. He is not aggressive, disruptive, less psychotic. REVIEW OF SYSTEMS: No CV, , pulmonary, eye, ENT system symptoms on review. Reliability poor. MENTAL STATUS EXAM: Oriented to himself. Insight, judgment, recent and remote memory, attention, concentration, fund of knowledge poor, consistent with his diagnosis mentioned in my initial note. PLAN: No change from initial note. MAN Julius POWELL MD DR: NATACHA/heidy JOB#: [id number] / [id number]
[2019-11-16 05:53] VITALS: BP 130/79
[2019-11-16] MEDS: SERTRALINE 25 MG TABLET. PO SCH (08:01)
[2019-11-16 08:02] VITALS: BP 130/79
[2019-11-16] MEDS: LACTOBACILLUS RHAMNOSUS GG 1 CAPSULE. PO SCH (08:02)
[2019-11-16] MEDS: METOPROLOL TART IMMED RELEASE 25 MG TABLET PO SCH (08:02)
--- NOTE | 2019-11-16 21:16 | PDOC ---
Exam Note: Rafa Note: Please also refer to the separate dictated note~for this date of service dictated separately.~Patient seen individually. Discussed the patient with Nursing staff reviewed the chart.~Reviewed interim history and current functioning. Reviewed vital signs,~Labs/ Radiology~and current medications noted below. Continue current treatment with the changes noted in the dictated addendum note Assessment: Vital Signs/I&O: Vital Signs Date Time Temp Pulse Resp B/P (MAP) Pulse Ox O2 Delivery O2 Flow Rate FiO2 11/16/19 08:02 98 130/79 11/16/19 05:53 97.9 20 100 I & O 11/15/19 11/15/19 11/16/19 15:00 23:00 07:00 Intake Total 1140 ml 480 ml Balance 1140 ml 480 ml Current Medications: I have reviewed the current psychotropics carefully including drug interactions. Risk benefit ratio favors no change other than as noted in my dictated progress note. Diagnosis: Problems: (1) Anxiety disorder (2) Dementia, vascular, with delusions (3) Dementia, vascular, with depression (4) Dementia in Alzheimer's disease with delusions (5) Dementia in Alzheimer's disease with depression (6) Impulse control disorder ANAYELI POWELL MD Nov 16, 2019 21:16
--- NOTE | 2019-11-17 10:15 | DS ---
DATE OF DISCHARGE: 11/16/2019 DISCHARGE SUMMARY AND PSYCHIATRIC PROGRESS NOTE This late entry, date of service 11/16/2019, covers elements not covered in my initial note. REASON FOR ADMISSION: Please refer to the admission history for details. Briefly, the patient is an 79-year-old Afro-[place] male referred to us from home where he was being cared for by [facility]. The hospice status had been discontinued recently and he had been combative, agitated, argumentative at home, resistive to cares, and bathing. He is verbally aggressive, cursing, delusional, totally convinced that he could drive and manage independently. He had failed outpatient psychiatric interventions resulting in this referral. SIGNIFICANT FINDINGS AND CLINICAL COURSE: Following admission, the patient was seen daily individually by myself from a psychiatric standpoint, medical followup with Dr. Blanco. The patient was quite confused, withdrawn, anxious, irritable, and labile in his mood. Adjustments were made in his psychotropics and he seemed to respond to a combination of Zoloft 75 mg a day, Seroquel 25 mg 1700, Ativan p.r.n., and Zyprexa p.r.n. REVIEW OF SYSTEMS: Prior to discharge on 11/16/2019, no CV, , pulmonary, eye, ENT system symptoms on review. Reliability poor. MENTAL STATUS EXAM: Oriented to himself. Insight, judgment, recent and remote memory, attention, concentration, fund of knowledge poor, consistent with his diagnosis. CONDITION AT DISCHARGE: Improved. FINAL DIAGNOSES: Major neurocognitive disorder; Alzheimer, vascular with delusion; depression; behavioral disturbance; anxiety disorder, unspecified; and impulse control disorder, unspecified. Rest unchanged from admission. DISCHARGE MEDICATIONS: Please refer to the MRAD. DISCHARGE INSTRUCTIONS: Outpatient psychiatric and medical followup at the senior care. Time for discharge day management greater than 30 minutes. ANAYELI POWELL MD DR: NATACHA/heidy JOB#: [id number] / [id number]
--- NOTE | 2019-11-17 10:19 | PN ---
DATE: 11/15/2019 PSYCHIATRIC PROGRESS NOTE This late entry 11/15/2019 covers elements not covered in my initial note. SUBJECTIVE: I met with the patient in the evening. Per KERLINE Fonseca, the patient slept 7-1/4 hours previous night. He remains confused, but is pleasant, coming out of the day room, which is quite an improvement. No aggression noted. REVIEW OF SYSTEMS: No CV, , pulmonary, eye, ENT system symptoms on review. Reliability poor. MENTAL STATUS EXAM: Oriented to himself. Insight, judgment, recent and remote memory, attention, concentration, fund of knowledge poor, consistent with his diagnosis mentioned in my initial note. PLAN: No change from initial note. Possible transition to senior care 1:30. MAN Julius POWELL MD DR: NATACHA/heidy JOB#: [id number] / [id number]
== END 2019-11-16 13:10 | disposition home or self-care (01) | DRG 57 ==
LOC: ER 16:14 → GEROPSY 19:30
PROVIDERS: ADMIT Psychiatry & Neurology Psychiatry; ATTEND Psychiatry & Neurology Psychiatry
DX: G30.9 Alzheimer's disease, unspecified (principal); F01.51 Vascular dementia, unspecified severity, with behavioral disturbance; F02.81 Dementia in other diseases classified elsewhere, unspecified severity, with behavioral disturbance; N39.0 Urinary tract infection, site not specified; Z66 Do not resuscitate; Z51.5 Encounter for palliative care; I12.9 Hypertensive chronic kidney disease with stage 1 through stage 4 chronic kidney disease, or unspecified chronic kidney disease; K21.9 Gastro-esophageal reflux disease without esophagitis; N18.9 Chronic kidney disease, unspecified; F41.9 Anxiety disorder, unspecified; E11.22 Type 2 diabetes mellitus with diabetic chronic kidney disease; F32.9 Major depressive disorder, single episode, unspecified; F63.9 Impulse disorder, unspecified; Z85.118 Personal history of other malignant neoplasm of bronchus and lung; Z98.41 Cataract extraction status, right eye; Z98.42 Cataract extraction status, left eye; Z87.891 Personal history of nicotine dependence; Z79.899 Other long term (current) drug therapy
CPT/HCPCS: 36415; 80053; 80061; 80307; 80329; 81001; 82306; 82607; 82947; 83036; 83540; 83550; 83735; 84436; 84443; 84480; 85025; 86592; 87086; 87186; 87804; 93005; G0480; 82003; 99285-25